=== PATIENT | female | born 1985 | race Two or more races ===

== ENCOUNTER 2023-03-23 16:24 | Emergency (ER) | payer MEDICAID, OTHER ==
[~2023-03-23] VITALS: Ht 157.5 cm; Wt 136.9 kg
[2023-03-23 22:45] VITALS: BP 121/64; PULSE 75; RESP 18; TEMP 97.6; O2SAT 99
[2023-03-23] MEDS ORDERED: IBUP-1456 PO (22:52)
== END 2023-03-23 23:13 | disposition home or self-care (01) ==
LOC: ER 16:24
DX: G44.209 Tension-type headache, unspecified, not intractable (principal)
CPT/HCPCS: 70450